=== PATIENT | female | born 1935 | race Caucasian/White ===

== ENCOUNTER 2016-07-30 14:12 | Emergency (ER) | payer MEDICARE ==
[~2016-07-30] VITALS: Ht 157.5 cm; Wt 72.6 kg
[2016-07-30] MEDS ORDERED: LEVO112T4 PO (14:46)
[2016-07-30] MEDS ORDERED: ALPR0.254 PO (14:46)
[2016-07-30] MEDS ORDERED: SOLI10TA PO (14:46)
[2016-07-30] MEDS ORDERED: QUET100T4 PO (14:46)
[2016-07-30] MEDS ORDERED: FLUO40CA2 PO (14:46)
[2016-07-30] MEDS ORDERED: POTA10TA12 PO (14:46)
[2016-07-30] MEDS ORDERED: OMEP40CA5 PO (14:46)
[2016-07-30] MEDS ORDERED: RISP1TAB43 PO (14:46)
[2016-07-30] MEDS ORDERED: MECLIZINE HCL 12.5 MG TABLET. PO ONE (15:00)
--- NOTE | 2016-07-30 15:21 | RAD ---
Indication fall yesterday. Pain. AP oblique and lateral views of the ankle were obtained. Similar AP oblique and lateral views of the foot were also obtained. The ankle appears unremarkable. No bony abnormality is seen. Similarly no acute or significant bony finding involving the foot is seen. Mild soft tissue swelling of the ankle and foot is noted. IMPRESSION: No acute finding seen involving the ankle or foot
[2016-07-30] MEDS ORDERED: fentaNYL PF VIAL 100 MCG/2 ML VIAL IM ONE (16:00)
[2016-07-30] MEDS ORDERED: ONDANSETRON ODT 4 MG TAB.RAPDIS. PO ONE (16:00)
[2016-07-30 16:30] VITALS: BP 117/78
[2016-07-30] MEDS ORDERED: HYDR-971 PO (16:49)
--- NOTE | 2016-07-30 16:49 | PHYS DOC ---
Past Medical History Past Medical History: Anxiety, Cancer, Depression, Hypothyroid, Other Additional Past Medical Histor: OVERACTIVE BLADDER Past Surgical History: Cancer Surgery, Cholecystectomy, Hysterectomy, Other Additional Past Surgical Histo: BILAT MASTECTOMY 2005, THYROIDECTOMY Alcohol Use: None Drug Use: None Adult General Chief Complaint Chief Complaint: MECHANICAL FALL HPI HPI Patient is a 80 year old female who presents with complaint of right ankle and foot pain. Patient states that she suffered a fall yesterday after having vertigo symptoms. Patient states that she has history of recurrent vertigo. Patient states that she started having symptoms of the "room spinning" yesterday and fell, injuring her right shoulder, foot, and ankle. Patient states that her shoulder is sore but does not cause her much pain. Patient states she is able to move her shoulder without difficulty. Patient however states that she is having difficulty bearing weight on her right ankle and foot secondary to pain. Patient rates pain as 7 out of 10 currently. Patient has not taken any medications for her symptoms today. Patient states that she is having intermittent vertigo symptoms especially when she moves her head. Patient has not taken any medication currently for those symptoms as well. Patient denies any chest pain or abdominal pain. Patient also denies any headache. Review of Systems Review of Systems Constitutional: Denies fever or chills [] Eyes: Denies change in visual acuity, redness, or eye pain [] HENT: Denies nasal congestion or sore throat [] Respiratory: Denies cough or shortness of breath [] Cardiovascular: Denies chest pain or edema [] GI: Denies abdominal pain, nausea, vomiting, bloody stools or diarrhea [] : Denies dysuria or hematuria [] Musculoskeletal: Right ankle and foot pain [] Integument: Denies rash or skin lesions [] Neurologic: Denies headache, focal weakness or sensory changes [] Current Medications Current Medications Current Medications Medications (Trade) Dose Ordered Sig/Leilani Start Time Stop Time Status Last Admin Dose Admin Fentanyl Citrate (Fentanyl 2ml Vial) 50 mcg 1X ONCE 07/30/16 16:00 07/30/16 16:13 DC 07/30/16 16:14 50 MCG Meclizine HCl (Antivert) 50 mg 1X ONCE 07/30/16 15:00 07/30/16 15:01 DC 07/30/16 15:10 50 MG Ondansetron HCl (Zofran Odt) 4 mg 1X ONCE 07/30/16 16:00 07/30/16 16:13 DC 07/30/16 16:13 4 MG Allergies Allergies Allergies Coded Allergies Type Severity Reaction Last Updated Verified No Known Drug Allergies 07/30/16 No Physical Exam Physical Exam Constitutional: Alert, afebrile, no acute distress. [] HENT: Normocephalic, atraumatic, bilateral external ears normal, oropharynx moist, no oral exudates, nose normal. [] Eyes: PERRLA, EOMI, horizontal nystagmus present bilaterally, conjunctiva normal , no discharge. [] Neck: Normal range of motion, no tenderness, supple, no stridor. [] Cardiovascular:Heart rate regular rhythm, no murmur [] Lungs & Thorax: Bilateral breath sounds clear to auscultation [] Abdomen: Bowel sounds normal, soft, no tenderness, no masses, no pulsatile masses. [] Skin: Warm, dry, no erythema, no rash. [] Back: No tenderness, no CVA tenderness. [] Extremities: Mild soft tissue swelling over right medial malleolus with tenderness along joint space, no bony tenderness, ecchymosis and swelling to right fourth toe with tenderness to palpation, no cyanosis, no clubbing, ROM intact, no edema. [] Neurologic: Alert and oriented X 3, normal motor function, normal sensory function, no focal deficits noted. [] Current Patient Data Vital Signs Vital Signs Date Time Temp Pulse Resp B/P (MAP) Pulse Ox O2 Delivery O2 Flow Rate FiO2 07/30/16 16:30 72 16 117/78 (91) 98 Room Air 07/30/16 14:26 97.7 97.7 EKG EKG Not performed [] Radiology/Procedures Radiology/Procedures Not performed [] Course & Med Decision Making Course & Med Decision Making Pertinent Labs and Imaging studies reviewed. (See chart for details) Patient was given meclizine in the emergency department with improvement in vertigo symptoms. Patient's x-rays negative for fracture. After speaking with the patient, she stated that she would like to go home if she is able to ambulate. Patient was treated with fentanyl in the emergency department for pain. After treatment, the patient was able to bear weight on the affected extremity and ambulate in the emergency department. Patient states that she does have a roller walker at home as well to be able to assist with ambulation. Advised use of this and recommended follow-up in one week with patient's primary doctor for reevaluation. Patient provided with a prescription for [place] to help with pain at home. Advised return emergency department for any worsening symptoms. Patient voiced understanding and in agreement with treatment plan. Dragon Disclaimer Dragon Disclaimer This electronic medical record was generated, in whole or in part, using a voice recognition dictation system. Departure Departure Impression: Primary Impression: Right foot injury Additional Impressions: Vertigo Ankle sprain Disposition: HOME, SELF-CARE Condition: IMPROVED Referrals: DEEPA LIM MD (PCP) Patient Instructions: Ankle Sprain, Foot Contusion, Vertigo Additional Instructions: Follow-up with primary doctor in 1 week. Return to emergency department for any worsening symptoms. Scripts Hydrocodone/Apap 5-325 (NORCO 5-325 TABLET) 1 Each Tablet 1 TAB PO Q4-6HRS Y for PAIN, #20 TAB Prov: HADLEY GAN MD 07/30/16 Problem Qualifiers Primary Impression: Right foot injury Encounter type: initial encounter Qualified Codes: S99.921A - Unspecified injury of right foot, initial encounter Additional Impressions: Ankle sprain Encounter type: initial encounter Involved ligament of ankle: unspecified ligament Laterality: right Qualified Codes: S93.401A - Sprain of unspecified ligament of right ankle, initial encounter HADLEY GAN MD July 30, 2016 16:49
--- NOTE | 2016-07-31 06:36 | EKG ---
[facility] [address] [place] [address] Test Date: 2016-07-30 Test Time: 14:31:00 Pat Name: TUTU SETHI Department: Room: Gender: F [employer] Machine: : [id number] Requested By: HADLEY GAN Order Number: [id number] Reading MD: Kevan Duque Measurements Intervals [place] Rate: 87 P: -90 OR: 156 QRS: -5 QRSD: 84 T: 97 QT: 406 QTc: 495 Interpretive Statements SINUS RHYTHM LEFTWARD AXIS QRS(T) CONTOUR ABNORMALITY CONSISTENT WITH INFERIOR INFARCT PROBABLY OLD Electronically Signed On 08-07-2016 8:47:23 CDT by Kevan Duque
== END 2016-07-30 16:50 | disposition home or self-care (01) ==
LOC: ER 14:12
DX: S93.401A Sprain of unspecified ligament of right ankle, initial encounter (principal); R42 Dizziness and giddiness; E03.9 Hypothyroidism, unspecified; F32.9 Major depressive disorder, single episode, unspecified; F41.9 Anxiety disorder, unspecified; E89.0 Postprocedural hypothyroidism; N32.81 Overactive bladder; Z90.49 Acquired absence of other specified parts of digestive tract; Z90.710 Acquired absence of both cervix and uterus; W19.XXXA Unspecified fall, initial encounter; Y93.89 Activity, other specified; Y92.89 Other specified places as the place of occurrence of the external cause; Y99.8 Other external cause status
CPT/HCPCS: 73610; 73630; 93005; 96372; 99284; J3010; J8597; Q0162